=== PATIENT | female | born 1955 | race Caucasian/White ===

== ENCOUNTER 2020-11-06 08:23 | Emergency (ER) | payer OTHER ==
[~2020-11-06 08:23] MED LIST: BREO ELLIPTA 11 EACH INH; CATAPRES0.1 MG PO; CETIRIZINE HCL10 MG PO; DOXEPIN HCL25 MG PO; EPIPEN0.3 MG/0.3 SC; EZETIMIBE10 MG PO; FLUTICASONE PRO16 GM INH; GABAPENTIN600 MG PO; HYDROCODON-ACE1 EAC4 PO; IPRAT-ALBUT 0.5-3 ML NEB; LASIX20 MG PO; METOCLOPRAMIDE H5 M1 PO; METOPROLOL SUC100 MG PO; NEURONTIN300 MG PO; NEURONTIN400 MG PO; NORCO 5-325 TA1 EACH PO; OMEPRAZOLE40 MG PO; OXY-IR 5MG5 MG PO; OXYCODONE HCL5 MG PO; PHENERGAN25 M1 PO; POTASSIUM CHLO10 MEQ PO; ROPINIROLE HCL4 MG PO; SIMVASTATIN40 MG PO; VALSARTAN320 MG PO; VENLAFAXINE HC150 MG PO; VITAMIN D-32000 UNI1 PO
[2020-12-24] MEDS ORDERED: GABAPENTIN600 MG PO (13:04)
== END 2020-11-06 09:23 | disposition home or self-care (01) ==
LOC: FER 08:23
DX: S63.502A Unspecified sprain of left wrist, initial encounter (principal); I10 Essential (primary) hypertension; J44.9 Chronic obstructive pulmonary disease, unspecified; F17.200 Nicotine dependence, unspecified, uncomplicated; W19.XXXA Unspecified fall, initial encounter; Y92.009 Unspecified place in unspecified non-institutional (private) residence as the place of occurrence of the external cause
CPT/HCPCS: 73110

== ENCOUNTER 2021-01-30 07:38 | Emergency (ER) | payer OTHER | END 2021-01-30 08:55 | disposition home or self-care (01) | LOC: FER 07:38 | DX: M54.5 Low back pain (principal); G89.29 Other chronic pain; R11.0 Nausea; R42 Dizziness and giddiness; I10 Essential (primary) hypertension; J44.9 Chronic obstructive pulmonary disease, unspecified; F17.210 Nicotine dependence, cigarettes, uncomplicated; Z88.0 Allergy status to penicillin; Z88.1 Allergy status to other antibiotic agents; Z88.2 Allergy status to sulfonamides | CPT/HCPCS: 99284; J1885 ==

== ENCOUNTER 2021-02-03 11:25 | Emergency (ER) | payer OTHER ==
[2021-02-03 12:47] LABS: BASOPHIL 0.6 % (0-2); EOSINOPHIL 2.6 % (0-7); HCT 28.9 % (37.0-47.0); HGB 9.6 g/dl (12.5-16.0); LYMPHOCYTE 16.1 % (15-48); MCH 37.1 pg (25.0-31.0); MCHC 33.2 g/dL (32.0-36.0); MCV 111.6 fL (78.0-100.0); MONOCYTE 7.9 % (0-12); NEUTROPHIL 72.1 % (41-80); NRBC 0; PLT 107 K/uL (150-400); RBC 2.59 M/uL (4.20-5.40); RDW 13.5 % (11.5-14.0); WBC 8.1 K/uL (4.0-10.5)
[2021-02-03 13:25] LABS: BILIRUBIN 1+ mg/dL (NEGATIVE); BLOOD NEGATIVE Ery/uL (NEGATIVE); CLARITY CLEAR (CLEAR); COLOR YELLOW (YELLOW); GLUCOSE (U) NORMAL (NORMAL); LEUKOCYTES TRACE Leu/uL (NEGATIVE); NITRITE NEGATIVE (NEGATIVE); PROTEIN NEGATIVE (NEGATIVE); SPECIFIC GRAVITY >=1.030 (1.001-1.030); UROBILINOGEN 0.2 mg/dL (0.2-1.0)
[2021-02-03 13:28] LABS: LACTIC ACID 3.9 mmol/L (0.4-1.9)
[2021-02-03 13:30] LABS: BACTERIA 1+; URINARY RBC RARE
[2021-02-03 13:31] LABS: ECSTASY (MDMA) NEGATIVE (NEGATIVE); MARIJUANA (THC) NEGATIVE (NEGATIVE)
[2021-02-03 13:32] LABS: AMPHETAMINES NEGATIVE (NEGATIVE); BARBITURATES NEGATIVE (NEGATIVE); METHADONE NEGATIVE (NEGATIVE); OPIATES NEGATIVE (NEGATIVE); OXYCODONE NEGATIVE (NEGATIVE)
[2021-02-03 13:38] LABS: ALKALINE PHOSHATASE 112 U/L (46-116); ALT 36 U/L (14-59); AMYLASE 41 U/L (25-115); AST 59 U/L (15-37); BILIRUBIN - TOTAL 2.2 mg/dL (0.2-1.0); CHLORIDE 101 mmol/L (98-107); CO2 (BICARBONATE) 28 mmol/L (21-32); CREATININE 4.43 mg/dL (0.51-0.95); GLOBULIN (CALCULATION) 5.1 g/dL; GLUCOSE 134 mg/dL (74-106); POTASSIUM 3.3 mmol/L (3.5-5.1); TOTAL PROTEIN 7.1 g/dL (6.4-8.2)
[2021-02-03 13:40] LABS: BUN 84 mg/dL (7-18)
[2021-02-03 13:58] LABS: FLU B NEGATIVE B (NEGATIVE B)
[2021-02-03 15:37] LABS: INR 2.87 (0.9-1.2); PROTHROMBIN TIME 29.1 SECONDS (11.8-13.4); PTT 49.5 SECONDS (24.4-34.7)
== END 2021-02-03 22:21 | disposition home or self-care (01) ==
LOC: FER 11:25
PROVIDERS: Emergency Medicine
DX: K76.7 Hepatorenal syndrome (principal); R65.21 Severe sepsis with septic shock; I10 Essential (primary) hypertension; F17.200 Nicotine dependence, unspecified, uncomplicated; Z20.822 Contact with and (suspected) exposure to COVID-19; Z88.2 Allergy status to sulfonamides; Z88.0 Allergy status to penicillin
CPT/HCPCS: 36415; 70450; 71045; 80053; 80305; 81001; 82140; 82150; 83605; 84145; 84484; 85025; 85610; 85730; 87040; 87088; 87804; 87899; 93005; 96372; G0480; J3411; J3490; J7030; U0002

== ENCOUNTER 2021-05-24 08:54 | Inpatient (IN) | payer OTHER ==
[~2021-05-24] VITALS: Ht 167 cm; Wt 65.8 kg
[2021-05-24 09:21] LABS: BASOPHIL 0.8 % (0-2); EOSINOPHIL 3.3 % (0-7); HCT 27.4 % (37.0-47.0); HGB 8.9 g/dl (12.5-16.0); LYMPHOCYTE 26.7 % (15-48); MCH 34.6 pg (25.0-31.0); MCHC 32.5 g/dL (32.0-36.0); MCV 106.6 fL (78.0-100.0); MONOCYTE 11.2 % (0-12); MPV 11.8 fL (6.0-9.5); NEUTROPHIL 57.4 % (41-80); NRBC 0.6; RBC 2.57 M/uL (4.20-5.40); RDW 16.2 % (11.5-14.0); WBC 5.2 K/uL (4.0-10.5)
[2021-05-24 09:22] LABS: PLT 77 K/uL (150-400)
[2021-05-24 10:34] LABS: INR 2.19 (0.9-1.2); PROTHROMBIN TIME 23.5 SECONDS (11.8-13.4); PTT 36.4 SECONDS (24.4-34.7)
[2021-05-24 10:36] LABS: IRON % SATURATION 79.5 %SAT (20-50)
[2021-05-24 10:45] LABS: PRO-BNP 804 pg/mL (<125)
[2021-05-24 10:51] LABS: LACTIC ACID 1.5 mmol/L (0.4-1.9)
[2021-05-24 11:15] LABS: ALBUMIN 2.2 g/dL (3.4-5.0); ALKALINE PHOSHATASE 113 U/L (46-116); ALT 47 U/L (14-59); AST 69 U/L (15-37); BILIRUBIN - TOTAL 3.9 mg/dL (0.2-1.0); BUN 31 mg/dL (7-18); BUN/CREAT RATIO (CALC) 26.3 RATIO; CHLORIDE 112 mmol/L (98-107); CO2 (BICARBONATE) 27 mmol/L (21-32); CREATININE 1.18 mg/dL (0.51-0.95); GLOBULIN (CALCULATION) 5.4 g/dL; GLUCOSE 108 mg/dL (74-106); LDH 330 U/L (81-234); LIPASE 212 U/L (73-393); MAGNESIUM 1.7 mg/dL (1.8-2.4); POTASSIUM 4.2 mmol/L (3.5-5.1); TOTAL PROTEIN 7.6 g/dL (6.4-8.2)
[2021-05-24 12:37] LABS: BILIRUBIN 1+ mg/dL (NEGATIVE); BLOOD TRACE-INTACT Ery/uL (NEGATIVE); CLARITY CLEAR (CLEAR); COLOR YELLOW (YELLOW); GLUCOSE (U) NORMAL (NORMAL); LEUKOCYTES TRACE Leu/uL (NEGATIVE); NITRITE POSITIVE (NEGATIVE); PROTEIN NEGATIVE (NEGATIVE); SPECIFIC GRAVITY 1.025 (1.001-1.030)
[2021-05-24 12:44] LABS: AMPHETAMINES NEGATIVE (NEGATIVE); BARBITURATES NEGATIVE (NEGATIVE); ECSTASY (MDMA) NEGATIVE (NEGATIVE); MARIJUANA (THC) NEGATIVE (NEGATIVE); METHADONE NEGATIVE (NEGATIVE); OPIATES NEGATIVE (NEGATIVE); OXYCODONE NEGATIVE (NEGATIVE)
[2021-05-24 12:54] LABS: BACTERIA 4+
[2021-05-24] MEDS ORDERED: IRBESARTAN300 MG PO (14:09)
[2021-05-24] MEDS ORDERED: EFFEXOR-XR 75 M75 MG PO (14:10)
[2021-05-24] MEDS ORDERED: REGLAN5 MG PO (14:11)
[2021-05-24] MEDS ORDERED: ZETIA10 MG PO (14:12)
[2021-05-24] MEDS ORDERED: SINGULAIR10 MG PO (14:12)
[2021-05-24] MEDS ORDERED: ESOMEPRAZOLE SO40 MG PO (14:14)
[2021-05-24] MEDS ORDERED: ATARAX25 MG PO (14:15)
[2021-05-24] MEDS ORDERED: TOPROL XL 50 MG50 MG PO (14:16)
[2021-05-24] MEDS ORDERED: XIFAXAN550 MG PO (14:17)
[2021-05-24] MEDS ORDERED: LASIX20 MG PO (14:17)
[2021-05-24] MEDS ORDERED: BUSPIRONE HCL15 MG PO (14:18)
[2021-05-24] MEDS ORDERED: ALEVE220 MG PO (14:23)
[2021-05-24] MEDS ORDERED: FLONASE ALLER15.8 ML (14:28)
[2021-05-24] MEDS ORDERED: LASIX40 MG PO (14:28)
[2021-05-24] MEDS ORDERED: CLONIDINE HCL0.1 MG PO (14:30)
[2021-05-24] MEDS ORDERED: CONSTULOSE10 GM/15 M PO (14:32)
[2021-05-24] MEDS ORDERED: DICLOFENAC SODI75 MG PO (14:33)
[2021-05-24] MEDS ORDERED: GABAPENTIN600 MG PO (14:35)
[2021-05-24] MEDS ORDERED: PROTONIX 40MG T40 MG PO (14:36)
[2021-05-24] MEDS ORDERED: CLARITIN10 MG PO (14:36)
[2021-05-24] MEDS ORDERED: REQUIP1 MG PO (14:37)
[2021-05-24] MEDS ORDERED: SINEQUAN50 MG PO (14:39)
[2021-05-24] MEDS ORDERED: ARTHRITIS PAIN50 GM TOP (14:44)
[2021-05-24] MEDS ORDERED: COZAAR50 MG PO (14:44)
[2021-05-24] MEDS ORDERED: ZOCOR40 MG PO (14:45)
[2021-05-24] MEDS ORDERED: ALDACTONE50 MG PO (14:46)
[2021-05-24] MEDS ORDERED: TRELEGY ELLIPT1 EACH INH (14:47)
[2021-05-24] MEDS ORDERED: VITAMIN D-3 PO (14:50)
[2021-05-25 05:32] LABS: BASOPHIL 0.8 % (0-2); EOSINOPHIL 3.4 % (0-7); HCT 24.9 % (37.0-47.0); HGB 8.1 g/dl (12.5-16.0); LYMPHOCYTE 28.4 % (15-48); MCH 34.5 pg (25.0-31.0); MCHC 32.5 g/dL (32.0-36.0); MPV 11.8 fL (6.0-9.5); NRBC 0; RBC 2.35 M/uL (4.20-5.40); RDW 16.6 % (11.5-14.0); WBC 4.7 K/uL (4.0-10.5)
[2021-05-25 05:34] LABS: PLT 60 K/uL (150-400)
[2021-05-25 05:57] LABS: ALBUMIN 1.9 g/dL (3.4-5.0); BILIRUBIN - TOTAL 4.1 mg/dL (0.2-1.0); BUN/CREAT RATIO (CALC) 38.7 RATIO; CREATININE 0.75 mg/dL (0.51-0.95); GLOBULIN (CALCULATION) 4.7 g/dL; POTASSIUM 3.6 mmol/L (3.5-5.1); TOTAL PROTEIN 6.6 g/dL (6.4-8.2)
[2021-05-26 06:13] LABS: BASOPHIL 0.9 % (0-2); EOSINOPHIL 4.3 % (0-7); HGB 7.8 g/dl (12.5-16.0); LYMPHOCYTE 34.1 % (15-48); MCHC 32.5 g/dL (32.0-36.0); MCV 107.6 fL (78.0-100.0); MONOCYTE 9.5 % (0-12); NEUTROPHIL 50.3 % (41-80); NRBC 0; RBC 2.23 M/uL (4.20-5.40); RDW 16.9 % (11.5-14.0); WBC 3.5 K/uL (4.0-10.5)
[2021-05-26 06:15] LABS: PLT 53 K/uL (150-400)
[2021-05-26 06:40] LABS: BUN/CREAT RATIO (CALC) 32.9 RATIO; CREATININE 0.73 mg/dL (0.51-0.95); POTASSIUM 3.5 mmol/L (3.5-5.1)
[2021-05-26] MEDS ORDERED: KEFLEX250 MG PO (10:10)
== END 2021-05-26 11:28 | disposition home or self-care (01) | DRG 442 ==
LOC: FER 08:54 → FTCU 12:47
PROVIDERS: Emergency Medicine; ADMIT Internal Medicine
DX: K72.90 Hepatic failure, unspecified without coma (principal); N39.0 Urinary tract infection, site not specified; E86.0 Dehydration; I10 Essential (primary) hypertension; F41.9 Anxiety disorder, unspecified; Z20.822 Contact with and (suspected) exposure to COVID-19; K70.30 Alcoholic cirrhosis of liver without ascites; D69.6 Thrombocytopenia, unspecified; D64.9 Anemia, unspecified; M19.90 Unspecified osteoarthritis, unspecified site; G47.00 Insomnia, unspecified; K21.9 Gastro-esophageal reflux disease without esophagitis; K31.84 Gastroparesis; J44.9 Chronic obstructive pulmonary disease, unspecified; E78.5 Hyperlipidemia, unspecified; G25.81 Restless legs syndrome; F17.200 Nicotine dependence, unspecified, uncomplicated; Z88.0 Allergy status to penicillin; Z88.2 Allergy status to sulfonamides; Z88.8 Allergy status to other drugs, medicaments and biological substances; Z90.710 Acquired absence of both cervix and uterus; Z98.890 Other specified postprocedural states; Z79.51 Long term (current) use of inhaled steroids; Z79.899 Other long term (current) drug therapy
CPT/HCPCS: 36415; 36600; 70450; 71045; 80048; 80053; 80305; 81001; 82140; 82728; 82803; 83540; 83550; 83605; 83615; 83690; 83735; 83880; 84145; 84439; 84443; 84484; 85025; 85610; 85730; 86140; 87040; 93005; G0480; J0696; J3475; U0002

== ENCOUNTER 2021-06-26 11:42 | Inpatient (IN) | payer OTHER ==
[~2021-06-26] VITALS: Ht 160 cm; Wt 64.0 kg
[~2021-06-26 11:42] MED LIST changes: +ALDACTONE50 MG PO; +ALEVE220 MG PO; +ARTHRITIS PAIN50 GM TOP; +ATARAX25 MG PO; +BUSPIRONE HCL15 MG PO; +CLARITIN10 MG PO; +CLONIDINE HCL0.1 MG PO; +CONSTULOSE10 GM/15 M PO; +COZAAR50 MG PO; +DICLOFENAC SODI75 MG PO; +EFFEXOR-XR 75 M75 MG PO; +ESOMEPRAZOLE SO40 MG PO; +FLONASE ALLER15.8 ML; +IRBESARTAN300 MG PO; +KEFLEX250 MG PO; +LASIX40 MG PO; +PROTONIX 40MG T40 MG PO; +REGLAN5 MG PO; +REQUIP1 MG PO; +SINEQUAN50 MG PO; +SINGULAIR10 MG PO; +TOPROL XL 50 MG50 MG PO; +TRELEGY ELLIPT1 EACH INH; +VITAMIN D-3 PO; +XIFAXAN550 MG PO; +ZETIA10 MG PO; +ZOCOR40 MG PO
[2021-06-26 12:26] LABS: BASOPHIL 0.7 % (0-2); EOSINOPHIL 1.8 % (0-7); HCT 30.8 % (37.0-47.0); LYMPHOCYTE 15.1 % (15-48); MCH 35.5 pg (25.0-31.0); MCHC 32.5 g/dL (32.0-36.0); MCV 109.2 fL (78.0-100.0); MONOCYTE 9.6 % (0-12); MPV 11.5 fL (6.0-9.5); NEUTROPHIL 72.3 % (41-80); NRBC 0.2; PLT 91 K/uL (150-400); RBC 2.82 M/uL (4.20-5.40); RDW 15.4 % (11.5-14.0); WBC 8.4 K/uL (4.0-10.5)
[2021-06-26 12:36] LABS: INR 2.58 (0.9-1.2); PROTHROMBIN TIME 26.7 SECONDS (11.8-13.4)
[2021-06-26 12:37] LABS: PTT 46.9 SECONDS (24.4-34.7)
[2021-06-26 12:40] LABS: BILIRUBIN 1+ mg/dL (NEGATIVE); BLOOD 3+ Ery/uL (NEGATIVE); COLOR YELLOW (YELLOW); GLUCOSE (U) NORMAL (NORMAL); LEUKOCYTES 3+ Leu/uL (NEGATIVE); NITRITE NEGATIVE (NEGATIVE); PROTEIN 2+ mg/dL (NEGATIVE); SPECIFIC GRAVITY 1.025 (1.001-1.030)
[2021-06-26 12:44] LABS: BACTERIA 3+; SQUAMOUS EPITHELIAL CELLS RARE; URINARY WBC TNTC
[2021-06-26 12:49] LABS: AMPHETAMINES NEGATIVE (NEGATIVE); BARBITURATES NEGATIVE (NEGATIVE); ECSTASY (MDMA) NEGATIVE (NEGATIVE); MARIJUANA (THC) NEGATIVE (NEGATIVE); METHADONE NEGATIVE (NEGATIVE); OPIATES NEGATIVE (NEGATIVE); OXYCODONE NEGATIVE (NEGATIVE)
[2021-06-26 12:55] LABS: CLARITY TURBID (CLEAR)
[2021-06-26 13:29] LABS: ALBUMIN 2.5 g/dL (3.4-5.0); ALKALINE PHOSHATASE 115 U/L (46-116); ALT 36 U/L (14-59); AST 59 U/L (15-37); BILIRUBIN - TOTAL 6.3 mg/dL (0.2-1.0); BUN 37 mg/dL (7-18); BUN/CREAT RATIO (CALC) 13.6 RATIO; CHLORIDE 104 mmol/L (98-107); CO2 (BICARBONATE) 26 mmol/L (21-32); CREATININE 2.73 mg/dL (0.51-0.95); GLOBULIN (CALCULATION) 5.6 g/dL; GLUCOSE 98 mg/dL (74-106); POTASSIUM 4.4 mmol/L (3.5-5.1); TOTAL PROTEIN 8.1 g/dL (6.4-8.2)
[2021-06-26 13:30] LABS: LACTIC ACID 4.3 mmol/L (0.4-1.9)
[2021-06-26 13:45] LABS: AMYLASE 20 U/L (25-115); LIPASE 82 U/L (73-393)
[2021-06-26 14:02] LABS: CORONAVIRUS 2019 SARS-COV-2 NEGATIVE (NEGATIVE); INFLUENZA A NAA NEGATIVE (NEGATIVE)
[2021-06-27 02:15] LABS: BILIRUBIN NEGATIVE (NEGATIVE); BLOOD 2+ Ery/uL (NEGATIVE); CLARITY HAZY (CLEAR); COLOR YELLOW (YELLOW); GLUCOSE (U) NORMAL (NORMAL); LEUKOCYTES 2+ Leu/uL (NEGATIVE); NITRITE POSITIVE (NEGATIVE); PROTEIN TRACE (LOW) mg/dL (NEGATIVE); SPECIFIC GRAVITY 1.015 (1.001-1.030)
[2021-06-27 02:25] LABS: BACTERIA 2+; URINARY WBC 20-50
[2021-06-27 02:26] LABS: SQUAMOUS EPITHELIAL CELLS RARE
[2021-06-27 06:03] LABS: BASOPHIL 0.9 % (0-2); HCT 26.5 % (37.0-47.0); HGB 8.7 g/dl (12.5-16.0); LYMPHOCYTE 27.1 % (15-48); MCH 36.6 pg (25.0-31.0); MCHC 32.8 g/dL (32.0-36.0); MCV 111.3 fL (78.0-100.0); MONOCYTE 9.1 % (0-12); MPV 11.8 fL (6.0-9.5); NEUTROPHIL 59.5 % (41-80); NRBC 0; RBC 2.38 M/uL (4.20-5.40); RDW 15.8 % (11.5-14.0); WBC 5.4 K/uL (4.0-10.5)
[2021-06-27 06:04] LABS: PLT 62 K/uL (150-400)
[2021-06-27 06:28] LABS: ALBUMIN 1.9 g/dL (3.4-5.0); BILIRUBIN - TOTAL 5.5 mg/dL (0.2-1.0); BUN/CREAT RATIO (CALC) 17.3 RATIO; CREATININE 2.08 mg/dL (0.51-0.95); GLOBULIN (CALCULATION) 4.4 g/dL; POTASSIUM 4.4 mmol/L (3.5-5.1); TOTAL PROTEIN 6.3 g/dL (6.4-8.2)
[2021-06-27 18:02] LABS: IRON % SATURATION 73.5 %SAT (20-50)
[2021-06-27 18:20] LABS: RETICULOCYTE COUNT 4.9 % (1.0-2.0)
[2021-06-27 18:53] LABS: FOLIC ACID (SERUM) 10.1 ng/mL (8.6-58.9)
[2021-06-28 06:08] LABS: BASOPHIL 1.5 % (0-2); EOSINOPHIL 4.2 % (0-7); HCT 26.5 % (37.0-47.0); HGB 8.6 g/dl (12.5-16.0); LYMPHOCYTE 29.3 % (15-48); MCH 36.1 pg (25.0-31.0); MCHC 32.5 g/dL (32.0-36.0); MCV 111.3 fL (78.0-100.0); MONOCYTE 9.2 % (0-12); MPV 11.8 fL (6.0-9.5); NEUTROPHIL 55.1 % (41-80); NRBC 0; RBC 2.38 M/uL (4.20-5.40); RDW 15.9 % (11.5-14.0); WBC 4.6 K/uL (4.0-10.5)
[2021-06-28 06:09] LABS: PLT 72 K/uL (150-400)
[2021-06-28 06:30] LABS: ALBUMIN 1.8 g/dL (3.4-5.0); BILIRUBIN - TOTAL 3.8 mg/dL (0.2-1.0); BUN/CREAT RATIO (CALC) 20.6 RATIO; CREATININE 1.41 mg/dL (0.51-0.95); GLOBULIN (CALCULATION) 4.5 g/dL; MAGNESIUM 1.2 mg/dL (1.8-2.4); PHOSPHORUS 3.9 mg/dL (2.6-4.7); POTASSIUM 3.8 mmol/L (3.5-5.1); TOTAL PROTEIN 6.3 g/dL (6.4-8.2)
[2021-06-29 06:30] LABS: EOSINOPHIL 3.7 % (0-7); HGB 7.7 g/dl (12.5-16.0); LYMPHOCYTE 24.9 % (15-48); MCH 35.8 pg (25.0-31.0); MCHC 32.1 g/dL (32.0-36.0); MCV 111.6 fL (78.0-100.0); MONOCYTE 13.9 % (0-12); MPV 11.7 fL (6.0-9.5); NEUTROPHIL 56.1 % (41-80); NRBC 0; RBC 2.15 M/uL (4.20-5.40); WBC 4.8 K/uL (4.0-10.5)
[2021-06-29 06:36] LABS: PLT 58 K/uL (150-400)
[2021-06-29 06:48] LABS: ALBUMIN 1.8 g/dL (3.4-5.0); BILIRUBIN - TOTAL 3.5 mg/dL (0.2-1.0); BUN/CREAT RATIO (CALC) 18.3 RATIO; CREATININE 1.04 mg/dL (0.51-0.95); GLOBULIN (CALCULATION) 4.8 g/dL; POTASSIUM 3.4 mmol/L (3.5-5.1); TOTAL PROTEIN 6.6 g/dL (6.4-8.2)
[2021-06-29 06:51] LABS: MAGNESIUM 1.8 mg/dL (1.8-2.4)
[2021-06-30 06:53] LABS: BASOPHIL 0.9 % (0-2); EOSINOPHIL 2.5 % (0-7); HCT 22.1 % (37.0-47.0); HGB 7.2 g/dl (12.5-16.0); LYMPHOCYTE 25.7 % (15-48); MCH 36.4 pg (25.0-31.0); MCHC 32.6 g/dL (32.0-36.0); MCV 111.6 fL (78.0-100.0); MONOCYTE 12.2 % (0-12); MPV 11.1 fL (6.0-9.5); NRBC 0; RBC 1.98 M/uL (4.20-5.40); RDW 15.9 % (11.5-14.0); WBC 4.4 K/uL (4.0-10.5)
[2021-06-30 06:54] LABS: PLT 56 K/uL (150-400)
[2021-06-30 07:18] LABS: BUN/CREAT RATIO (CALC) 15.5 RATIO; CREATININE 0.84 mg/dL (0.51-0.95); POTASSIUM 3.7 mmol/L (3.5-5.1)
[2021-06-30] MEDS ORDERED: LEVAQUIN750 MG PO (16:22)
== END 2021-06-30 16:47 | disposition home or self-care (01) | DRG 871 ==
LOC: FER 11:42 → FMS 06-27 11:52
PROVIDERS: Emergency Medicine Emergency Medical Services; Nurse Practitioner Family; ADMIT Internal Medicine
DX: A41.89 Other specified sepsis (principal); R65.21 Severe sepsis with septic shock; K72.00 Acute and subacute hepatic failure without coma; G93.41 Metabolic encephalopathy; N17.9 Acute kidney failure, unspecified; Z16.24 Resistance to multiple antibiotics; N30.00 Acute cystitis without hematuria; K70.30 Alcoholic cirrhosis of liver without ascites; Z20.822 Contact with and (suspected) exposure to COVID-19; I10 Essential (primary) hypertension; G89.29 Other chronic pain; M19.90 Unspecified osteoarthritis, unspecified site; G47.00 Insomnia, unspecified; J44.9 Chronic obstructive pulmonary disease, unspecified; Z90.710 Acquired absence of both cervix and uterus; Z98.890 Other specified postprocedural states; Z88.0 Allergy status to penicillin; Z88.2 Allergy status to sulfonamides; Z87.891 Personal history of nicotine dependence; Z79.84 Long term (current) use of oral hypoglycemic drugs; Z79.899 Other long term (current) drug therapy; Z91.81 History of falling
CPT/HCPCS: 36415; 70450; 71045; 80048; 80053; 80305; 81001; 82140; 82150; 82607; 82728; 82746; 82962; 83540; 83550; 83605; 83690; 83735; 83880; 84100; 84145; 84484; 85025; 85610; 85730; 87040; 87076; 87088; 87186; 93005; 94640; 97162; 97166; 97530-GP; 97535; C9113; G0480; J0696; J3475; J3490; J7030; U0002

== ENCOUNTER 2021-07-05 21:13 | Emergency (ER) | payer OTHER ==
[~2021-07-05 21:13] MED LIST changes: +LEVAQUIN750 MG PO
== END 2021-07-06 00:30 | disposition home or self-care (01) ==
LOC: FER 21:13
DX: S46.911A Strain of unspecified muscle, fascia and tendon at shoulder and upper arm level, right arm, initial encounter (principal); F17.200 Nicotine dependence, unspecified, uncomplicated
CPT/HCPCS: 73030; J1885

== ENCOUNTER 2021-07-06 11:10 | Inpatient (IN) | payer OTHER ==
[~2021-07-06] VITALS: Ht 160 cm; Wt 67.3 kg
[2021-07-06 13:02] LABS: BASOPHIL 0.4 % (0-2); EOSINOPHIL 3.9 % (0-7); HCT 21.2 % (37.0-47.0); HGB 6.8 g/dl (12.5-16.0); LYMPHOCYTE 18.7 % (15-48); MCH 36.6 pg (25.0-31.0); MCHC 32.1 g/dL (32.0-36.0); MPV 11.8 fL (6.0-9.5); NEUTROPHIL 68.6 % (41-80); NRBC 0; RBC 1.86 M/uL (4.20-5.40); RDW 15.8 % (11.5-14.0); WBC 5.1 K/uL (4.0-10.5)
[2021-07-06 13:06] LABS: PLT 54 K/uL (150-400)
[2021-07-06 13:15] LABS: BILIRUBIN NEGATIVE (NEGATIVE); BLOOD NEGATIVE Ery/uL (NEGATIVE); CLARITY CLEAR (CLEAR); COLOR YELLOW (YELLOW); GLUCOSE (U) NORMAL (NORMAL); LEUKOCYTES NEGATIVE Leu/uL (NEGATIVE); NITRITE NEGATIVE (NEGATIVE); PROTEIN NEGATIVE (NEGATIVE); SPECIFIC GRAVITY >=1.030 (1.001-1.030); UROBILINOGEN 0.2 mg/dL (0.2-1.0)
[2021-07-06 13:18] LABS: BUN/CREAT RATIO (CALC) 22.9 RATIO; CREATININE 1.31 mg/dL (0.51-0.95); POTASSIUM 4.1 mmol/L (3.5-5.1)
[2021-07-06 13:32] LABS: ALT 43 U/L (14-59); AST 53 U/L (15-37)
[2021-07-06 21:12] LABS: HGB 7.8 g/dL (12.5-16.0)
[2021-07-06 21:19] LABS: INR 2.92 (0.9-1.2); PROTHROMBIN TIME 29.5 SECONDS (11.8-13.4)
[2021-07-07 06:26] LABS: BASOPHIL 0.9 % (0-2); EOSINOPHIL 3.9 % (0-7); HCT 27.9 % (37.0-47.0); LYMPHOCYTE 24.1 % (15-48); MCH 32.7 pg (25.0-31.0); MCHC 32.6 g/dL (32.0-36.0); MONOCYTE 10.3 % (0-12); MPV 11.3 fL (6.0-9.5); NEUTROPHIL 60.2 % (41-80); NRBC 0.4; RBC 2.78 M/uL (4.20-5.40); RDW 20.8 % (11.5-14.0); WBC 4.7 K/uL (4.0-10.5)
[2021-07-07 06:30] LABS: HGB 9.1 g/dl (12.5-16.0); MCV 100.4 fL (78.0-100.0); PLT 48 K/uL (150-400)
[2021-07-07 08:10] LABS: ALKALINE PHOSHATASE 84 U/L (46-116); ALT <6 U/L (14-59); AST 58 U/L (15-37); BILIRUBIN - TOTAL 3.8 mg/dL (0.2-1.0); BUN 26 mg/dL (7-18); BUN/CREAT RATIO (CALC) 21.8 RATIO; CHLORIDE 111 mmol/L (98-107); CO2 (BICARBONATE) 25 mmol/L (21-32); CREATININE 1.19 mg/dL (0.51-0.95); GLOBULIN (CALCULATION) 4.5 g/dL; GLUCOSE 99 mg/dL (74-106); POTASSIUM 3.9 mmol/L (3.5-5.1); TOTAL PROTEIN 6.5 g/dL (6.4-8.2)
--- NOTE | 2021-07-07 10:45 | NUR ---
07/07/21 Ms. Palomo lives at home with her son, Elias Zambrano, in [place]. She uses [email or web address] 3in[employer], s. seat and rw from her brother. [facility] and [facility] are current per patient. [facility] reports to have dced patient on 06/22. However, they will initiate services again. Referral made via [employer].
--- NOTE | 2021-07-07 15:42 | NUR ---
07/07/21 Arley Palomo, son, reports concerns re: Ms. Palomo ability to live in the community. He states that Ms. Palomo's brother, whom she lives with, is not able to care for her. - Arley Palomo and this social work program coordinator spoke with Ms. Palomo. She has agreed to [facility]. They chose [facility], [facility], [facility] and [facility]. and [facility]. - [facility] is not accepting patients due to staffing and [facility] has a waiting list of 2 - 3 weeks.
--- NOTE | 2021-07-07 16:31 | NUR ---
07/07/21 Filippo Erwin will accept patient on 07/08. SonShamir" will transport ([phone]). Please call report to: [phone] and ask for Transitions Nursing Unit. Fax DS to: [phone].
[2021-07-08 06:42] LABS: BASOPHIL 0.8 % (0-2); EOSINOPHIL 3.8 % (0-7); HCT 26.8 % (37.0-47.0); HGB 9.1 g/dl (12.5-16.0); LYMPHOCYTE 28.4 % (15-48); MCH 33.7 pg (25.0-31.0); MCV 99.3 fL (78.0-100.0); MONOCYTE 8.9 % (0-12); MPV 10.9 fL (6.0-9.5); NEUTROPHIL 57.7 % (41-80); NRBC 0.4; RDW 20.8 % (11.5-14.0)
[2021-07-08 06:56] LABS: PLT 48 K/uL (150-400)
[2021-07-08 07:14] LABS: ALBUMIN 1.9 g/dL (3.4-5.0); BILIRUBIN - TOTAL 4.3 mg/dL (0.2-1.0); BUN/CREAT RATIO (CALC) 16.3 RATIO; CREATININE 0.98 mg/dL (0.51-0.95); GLOBULIN (CALCULATION) 4.5 g/dL; POTASSIUM 3.6 mmol/L (3.5-5.1); TOTAL PROTEIN 6.4 g/dL (6.4-8.2)
[2021-07-08] MEDS ORDERED: TAB-A-VITE TA400 MC1 PO (10:48)
[2021-07-08] MEDS ORDERED: FOLIC ACID1 MG PO (10:48)
[2021-07-08] MEDS ORDERED: VITAMIN B-1100 M1 PO (10:48)
== END 2021-07-08 12:38 | DRG 433 ==
LOC: FER 11:10 → FMS 14:27
PROVIDERS: Allergy & Immunology Allergy; Internal Medicine; Nurse Practitioner Family; ADMIT Family Medicine
PROC: 30233N1 Transfusion of Nonautologous Red Blood Cells into Peripheral Vein, Percutaneous Approach (ICD-10-PCS; principal; 2021-07-06)
DX: K70.31 Alcoholic cirrhosis of liver with ascites (principal); F10.239 Alcohol dependence with withdrawal, unspecified; Z20.822 Contact with and (suspected) exposure to COVID-19; I11.0 Hypertensive heart disease with heart failure; I50.9 Heart failure, unspecified; D53.9 Nutritional anemia, unspecified; K31.84 Gastroparesis; J44.9 Chronic obstructive pulmonary disease, unspecified; M19.90 Unspecified osteoarthritis, unspecified site; D69.59 Other secondary thrombocytopenia; F17.200 Nicotine dependence, unspecified, uncomplicated; Z88.0 Allergy status to penicillin; Z88.2 Allergy status to sulfonamides; Z88.8 Allergy status to other drugs, medicaments and biological substances; Z90.710 Acquired absence of both cervix and uterus; Z98.890 Other specified postprocedural states
CPT/HCPCS: 36415; 36430; 80048; 80053; 80076; 81003; 82140; 82247; 84145; 84450; 84460; 85018; 85025; 85610; 86850; 86900; 86901; 86922; 94010; 97162; 97166; 97530; 97530-GP; J2405; P9016; U0002